=== PATIENT | female | born 2005 | race Two or more races ===

== ENCOUNTER 2024-12-03 09:03 | Outpatient (CLI) | payer OTHER | END 2024-12-03 09:04 | disposition home or self-care (01) | LOC: PRENATAL 09:03 | PROVIDERS: ATTEND Obstetrics & Gynecology Maternal & Fetal Medicine | DX: O44.00 Complete placenta previa NOS or without hemorrhage, unspecified trimester (principal); Z3A.21 21 weeks gestation of pregnancy ==

== ENCOUNTER 2024-12-30 14:12 | Outpatient (CLI) | payer OTHER ==
[2024-12-30 14:14] VITALS: BP 102/68
[2024-12-30 14:21] VITALS: BP 102/68
[2024-12-30 15:26] VITALS: BP 92/59
[2024-12-30 17:50] VITALS: BP 92/59
== END 2024-12-30 17:23 | disposition home or self-care (01) ==
LOC: OBS/DEL 14:12
PROVIDERS: ATTEND Student in an Organized Health Care Education/Training Program
DX: O62.8 Other abnormalities of forces of labor (principal); O26.842 Uterine size-date discrepancy, second trimester; O36.8120 Decreased fetal movements, second trimester, not applicable or unspecified; O60.02 Preterm labor without delivery, second trimester; Z3A.25 25 weeks gestation of pregnancy